=== PATIENT | female | born 1960 | race Caucasian/White ===

== ENCOUNTER 2016-07-04 17:50 | Emergency (ER) | payer MEDICARE ==
[2016-07-04] MEDS ORDERED: Aspirin Low Dose CHEW TAB* 81 MG ONE (18:11)
[2016-07-04] MEDS ORDERED: fentaNYL* 50 MCG/ML 2 ML VIAL (100 MCG VIAL) ONE (18:40)
[2016-07-04] MEDS ORDERED: Iohexol 350 (CONTRAST) 200 ML MDV IV ONE (18:41)
[2016-07-04] MEDS ORDERED: Lidocaine 1% INJ* 10 MG/ML 30 ML SDV ONE (18:41)
[2016-07-04] MEDS ORDERED: Heparin 2 UNITS/ML IVPREMIX* 0 ML IV ONE (18:41)
[2016-07-04] MEDS ORDERED: Midazolam* 1 MG/ML 5 ML VIAL (5 MG) ONE (18:41)
[2016-07-04] MEDS ORDERED: nitroGLYCERIN DRIP* 0 ML ONE (18:41)
[2016-07-04] MEDS ORDERED: Aspirin Low Dose CHEW TAB* 81 MG PO ONE (22:35)
--- NOTE | 2016-07-04 22:36 | UC ---
Kenyon Mcneil Aidan, scribed for Nisha Miller MD on 07/04/16 at 1850 . Shortness of Breath HPI - HPI Summary HPI Summary: 55 y/o female presents to the Urgent Care, accompanied by boyfriend, c/o cough, weakness, sob over the last couple days. Worse for the last several hours. Weakness is profound. ROS and HPI as available per boyfriend, pt very weak. Yesterday, she vomited. This afternoon, she became diaphoretic and weaker. While in the UC, she was able to move her fingers and toes. Pt denies hepatitis , HIV or Hx of AZ. + hx DM, diet controlled. No current PCP (?). Does not take medications except "aspirin now and then," but not today. - History of Current Complaint Chief Complaint: UCAlteredMentalStatus Stated Complaint: DIFFICULTY BREATHING,STOMACH PAIN,CHILLS Hx Obtained From: Patient ?: No Onset/Duration: Sudden Onset, Lasting Days, Still Present Timing: Constant - SOB Current Severity: Moderate Dyspnea At: Rest Aggrevating Factors: Nothing - unknown Alleviating Factors: Nothing - unknown Associated Signs & Symptoms: Positive: Cough (Productive), Diaphoresis, Other - vomiting, weakness, episode of difficulty walking, - Risk Factors Pulmonary Embolism: Smoking Cardiac: Smoking Tuberculosis: Smoking - Allergy/Home Medications Allergies/Adverse Reactions: Allergies Allergy/AdvReac Type Severity Reaction Status Date / Time No Known Allergies Allergy Verified 07/04/16 18:09 Home Medications: Home Medications NK [No Home Medications Reported] 07/04/16 [History Confirmed 07/04/16] PMH/Surg Hx/FS Hx/Imm Hx Previously Healthy: No - se hpi Endocrine History Of: Reports: Diabetes - Surgical History Surgical History: Unable to Obtain/Confirm - Family History Known Family History: Positive: Cardiac Disease - Social History Occupation: Employed Full-time Lives: Alone Alcohol Use: Rare Substance Use Type: None Smoking Status (MU): Heavy Every Day Tobacco Smoker Review of Systems Constitutional: Fever, Other - weakness, episode of difficulty walking ROS limited see hpi. Full ROS not obtainable 2/2 extremis. Skin: Negative Eyes: Negative ENT: Negative Respiratory: Shortness Of Breath, Cough Cardiovascular: Negative Gastrointestinal: Vomiting Genitourinary: Negative Motor: Negative Neurovascular: Negative Musculoskeletal: Negative Neurological: Negative Psychological: Negative All Other Systems Reviewed And Are Negative: No Physical Exam Triage Information Reviewed: Yes Completion Of Physical Exam Limited Due To: Altered Mental Status, Extremis Appearance: Well-Nourished, Ill-Appearing Vital Signs: Initial Vital Signs Temp 95.4 F 07/04/16 18:06 Resp 18 07/04/16 18:06 Pulse Ox 89 07/04/16 18:06 Vital Signs Reviewed: Yes Eye Exam: Normal - pupils equal, approx 3 mm. Appears to track all directions. ENT Exam: Other - mm dry. trachea midline. No stridor. Neck: Positive: Supple, Nontender Respiratory Exam: Other Respiratory: Positive: Rhonchi, Wheezing, Expiration Cardiovascular Exam: Other - Pulse (Radial) thready and faint. HR approx 130' s. BP number difficult approx 80s syst. Abdominal Exam: Other - nondistended to gross exam. Obese. Abdomen Description: Positive: Soft Musculoskeletal Exam: Other - moves all 4 ext's (wiggles toes, moves fingers). Gait not tested. Neurological Exam: Other - Facial exp grossly intact. Moves all 4 ext's Converses in very short sentances, appropriate. Psychological: Positive: Normal Response To Family, Age Appropriate Behavior Skin Exam: Other - diaphoretic, pale. Diagnostics - EKG Cardiac Rate: Tachycardia - 139 Cardiac Rhythm: Sinus: Normal - EKG 1806: sinus rhythm, ST elevation and VII , no prior EKG to reference. Shortness of Breath Dx - Course Course Of Treatment: ASA 82mg po x 4 in CCC. EMS notified immediately at time of my initial examination. D/w Dr. Mueller, ED. Gentleman friend will drive to ED and meet her there. Expresses understanding and agreement. Condition is critical. - Differential Dx/Diagnosis Provider Diagnoses: AZ. Cough. Volume depl - Physician Notification/Consults Discussed Patient Care With: Dr. Cabrera (ED) Time Discussed With Above Provider: 18:20 - Dr. Miller discussed transfer. She spoke with Dr. Cabrera a second time at 1930 for followup Discharge - Discharge Plan Condition: Critical Disposition: TRANS HIGHER LVL OF CARE FAC Referrals: No Primary Care Phys,NOPCP [Primary Care Provider] - The documentation as recorded by the Kenyon shetty Aidan accurately reflects the service I personally performed and the decisions made by me, Nisha Miller MD.
[2016-07-04] MEDS ORDERED: NS 0.9% 500 ML BAG* 500 ML IV SCH (23:00)
[2016-07-04 23:22] VITALS: BP 66/57
== END 2016-07-04 18:25 | disposition short-term general hospital (02) ==
LOC: UCEAST 17:50
DX: I21.3 ST elevation (STEMI) myocardial infarction of unspecified site (principal); R05 Cough; R41.82 Altered mental status, unspecified; E86.9 Volume depletion, unspecified; E11.9 Type 2 diabetes mellitus without complications; F17.210 Nicotine dependence, cigarettes, uncomplicated
CPT/HCPCS: 93005; 99204; A9270-GY; G0463; J1644; J2001; J2250; J3010

== ENCOUNTER 2016-07-04 18:33 | Emergency (ER) | payer MEDICARE ==
[2016-07-04] MEDS ORDERED: NS 0.9% 1000 ML* 3,000 ML IV ONE (18:40)
[2016-07-04] MEDS ORDERED: Heparin for STEMI(*) 5,000 UNITS/ML 1 ML VIAL IV ONE (18:40)
[2016-07-04 18:47] LABS: Hematocrit 43 % (35-47); Hemoglobin 14.4 g/dl (12.0-16.0); Mean Corpuscular HGB Conc 33 g/dl (31-36); Mean Corpuscular Hemoglobin 30 pg (27-31); Mean Corpuscular Volume 89 fL (80-97); Mean Platelet Volume 9 um3 (7.4-10.4); Red Blood Count 4.87 10^6/ul (4.0-5.4); Red Cell Distribution Width 15 % (10.5-15); White Blood Count 19.1 10^3/ul (3.5-10.8)
[2016-07-04 18:51] LABS: Comments Flag Yes
[2016-07-04 18:56] LABS: Add Diff/Slide Review? Slide Review Added
[2016-07-04 19:03] LABS: Albumin 2.7 g/dL (3.2-5.2); BUN/Creatinine Ratio 13.5 (8-20); Calcium 8.4 mg/dL (8.6-10.3); EGFR African American 24.5 (>60); EGFR Non-African American 19.1 (>60); Globulin 4.9 g/dL (2-4); Potassium 3.3 mmol/L (3.5-5.0); Total Bilirubin 0.9 mg/dL (0.2-1.0); Total Protein 7.6 g/dL (6.4-8.9)
[2016-07-04] MEDS ORDERED: Piperac/Tazob 3.375 gm in NS* 3.375 GM/100 ML BAG IVPB ONE ×2 (19:04→19:10)
[2016-07-04] MEDS ORDERED: Vancomycin(*) 1,000 MG in NS 0.9% 250 ML* 250 ML IVPB ONE (19:05)
[2016-07-04 19:08] LABS: Troponin I 8.1 ng/mL (<0.04)
[2016-07-04] MEDS ORDERED: Norepinephrine 16MCG/ML IVPRE* 8,000 MCG/500 ML BAG IV ONE (19:08)
[2016-07-04 19:23] LABS: Burr Cells 1+; Immature Granulocytes 38 % (0-9); Metamyelocytes % 5 % (0-2); Myelocytes % 6 % (0-1); Neutrophil % 53 % (38-83); Polychromasia 1+
[2016-07-04 19:25] LABS: Add Path Review? YES
[2016-07-04] MEDS ORDERED: Iodixanol* (CONTRAST) 320 MG/ML 100 ML SDV ONE (19:25)
[2016-07-04] MEDS ORDERED: Phenylephrine IV* 40 MCG/ML 10 ML SYRINGE IV PUSH PRN (19:32)
--- NOTE | 2016-07-04 19:35 | RAD ---
Indication: Shortness of breath, cough, CHF, pneumonia. Single frontal view of the chest performed at 1849 hours was reviewed. No prior study is available for comparison.. No mediastinal shift is noted. Heart is of normal size and configuration. Lung arriola appear clear. IMPRESSION: NO ACTIVE CARDIOPULMONARY DISEASE IS NOTED.
[2016-07-04] MEDS: [UNRECOGNIZED DRUG - OTHER] IV SCH ×4 (19:50→20:06)
[2016-07-04] MEDS: PHENYLEPHRINE IV SCH ×4 (19:50→20:06)
[2016-07-04] MEDS ORDERED: Norepinephrine 16MCG/ML IVPRE* 4,000 MCG/250 ML BAG IV SCH (20:00)
--- NOTE | 2016-07-04 20:09 | RAD ---
Indication: Abdominal pain, chest pain. CT of the chest, abdomen and pelvis was performed without oral or IV contrast administration. Coronal and sagittal reconstructed images were obtained. Inferior thyroid lobes are unremarkable. There are small mediastinal lymph nodes measuring up to 8 mm. No hilar adenopathy is noted. The heart demonstrates no pericardial effusion. The trachea and major bronchi appear patent. The lung arriola demonstrate no evidence of alveolar consolidation. No pleural fluid is identified. CT of the abdomen and pelvis demonstrates liver to be normal in size. No focal lesions or intrahepatic ductal dilatation is noted. The gallbladder demonstrates no calcified gallstones. No pericholecystic fluid or wall thickening is identified. The spleen is normal in size. The pancreas demonstrates no mass or pancreatic duct dilatation. Common duct is not dilated. There is enlargement of the right kidney. There is right hydroureter noted. There are 2 small calculi in the right ureter measuring approximately 4 mm each. This is likely causing right ureteral obstruction. Perinephric infiltration of fat is noted. The left kidney demonstrates no hydronephrosis. Atherosclerotic aorta is noted. The urinary bladder is unremarkable. IMPRESSION: THERE IS RIGHT HYDRONEPHROSIS AND HYDROURETER NOTED. THERE ARE SMALL CALCULI IN THE DISTAL RIGHT URETER LIKELY REPRESENTING URETERAL OBSTRUCTION. PERINEPHRIC INFILTRATION OF FAT IS NOTED. THERE APPEARS TO BE CHRONIC INTERSTITIAL DISEASE NOTED.
[2016-07-04 20:23] LABS: Fibrinogen 429 mg/dL (110.8-404.3)
[2016-07-04 20:24] LABS: Schistocytes ABSENT
--- NOTE | 2016-07-04 21:32 | ED ---
Isabela Mcneil Auryana, scribed for Kris Mueller MD on 07/04/16 at 1923 . HPI Febrile Illness - HPI Summary HPI Summary: 55 year old female LUIZ with fever and chills starting 2-3 days ago. She also has a CHEN, productive cough, abdominal pain and vomiting. En route - BP 52/39, HR 140- on arrival HR 114. She denies SOB, or CP. PMHx is significant for DM. SHx is significant for tobacco use. She was seen at [facility] for cough and weakness and brought by ambulance for further evaluation due to condition. - History of Current Complaint Chief Complaint: EDChestPainROMI Time Seen by Provider: 07/04/16 18:40 Hx Obtained From: Patient, EMS Onset/Duration: Started Days Ago - 2-3, Still Present Timing: Constant Initial Severity: Mild Current Severity: Mild Pain Intensity: 0 Pain Scale Used: 0-10 Numeric Associated Signs and Symptoms: Chills, Cough, Headache, Vomiting, Weakness, Other: - abdominal pain - Additional Pertinent History Referred By: Other - [facility] - Allergy/Home Medications Allergies/Adverse Reactions: Allergies Allergy/AdvReac Type Severity Reaction Status Date / Time No Known Allergies Allergy Verified 07/04/16 18:09 PMH/Surg Hx/FS Hx/Imm Hx Endocrine/Hematology History: Reports: Hx Diabetes Infectious Disease History: No Infectious Disease History: Denies: Traveled Outside the [place] in Last 30 Days - Social History Occupation: Employed Full-time Lives: With Family - domestic partner Alcohol Use: Rare Substance Use Type: Reports: None Smoking Status (MU): Heavy Every Day Tobacco Smoker Review of Systems Constitutional: Negative Eyes: Negative ENT: Negative Cardiovascular: Negative Negative: Chest Pain Respiratory: Negative Negative: Shortness Of Breath Gastrointestinal: Negative Genitourinary: Negative Musculoskeletal: Negative Skin: Negative Neurological: Negative Psychological: Normal All Other Systems Reviewed And Are Negative: Yes Physical Exam - Summary Physical Exam Summary: The patient is well-nourished in moderate distress and is moderately ill appearing. She is modeled. The skin is warm and diaphoretic. Patient is pale. HEENT: The head is normocephalic and atraumatic. The pupils are equal and reactive. The conjunctivae are clear and without drainage. Nares are patent and without drainage. Mouth reveals dry mucous membranes and the throat is without erythema and exudate. The external ears are intact. The ear canals are patent and without drainage. The tympanic membranes are intact. No perioral cyanosis. Neck is supple with full range of motion and non-tender. There are no carotid bruits. There is no neck vein distension. Respiratory: Chest is non-tender. Lungs have rhonchi on the R - no rales. Breath sounds are symmetrical and equal. Cardiovascular: Heart is tachycardic. There is no murmur or rub auscultated. There is no peripheral edema and pulses are symmetrical and equal. Abdomen: The abdomen is soft and non-tender. There are normal bowel sounds heard in all four quadrants and there is no organomegaly palpated. Musculoskeletal: There is no back pain noted. Extremities are non-tender. Couldn't see capillary refill through nail upper sorbian. Radial pulses present. Neurological: Patient is alert and oriented to person, place and time. The patient has symmetrical motor strength in all four extremities. Cranial nerves are grossly intact. Deep tendon reflexes are symmetrical and equal in all four extremities. Psychiatric: The patient has an appropriate affect and does not exhibit any anxiety or depression. Triage Information Reviewed: Yes Vital Signs On Initial Exam: Initial Vitals Temp Pulse Resp BP Pulse Ox 96.7 F 102 38 92/37 99 07/04/16 18:37 07/04/16 18:37 07/04/16 18:37 07/04/16 18:37 07/04/16 18:37 Vital Signs Reviewed: Yes Diagnostics - Vital Signs Vital Signs Temp Pulse Resp BP Pulse Ox 07/04/16 18:40 31 92/37 07/04/16 18:37 96.7 F 102 38 92/37 99 - Laboratory Lab Results: Lab Results 07/04/16 07/04/16 07/04/16 Range/Units 18:35 18:35 18:35 WBC 19.1 H (3.5-10.8) 10^3/ul RBC 4.87 (4.0-5.4) 10^6/ul Hgb 14.4 (12.0-16.0) g/dl Hct 43 (35-47) % MCV 89 (80-97) fL MCH 30 (27-31) pg MCHC 33 (31-36) g/dl RDW 15 (10.5-15) % Plt Count 47 L 47 L (150-450) 10^3/ul MPV 9 (7.4-10.4) um3 Immature Gran % (Auto) 38 H (0-9) % Neut % (Auto) 87.1 H (38-83) % Lymph % (Auto) 8.9 L (25-47) % Wright % (Auto) 3.8 (1-9) % Eos % (Auto) 0.1 (0-6) % Baso % (Auto) 0.1 (0-2) % Absolute Neuts (auto) 16.5 H (1.5-7.7) 10^3/ul Absolute Lymphs (auto) 1.7 (1.0-4.8) 10^3/ul Absolute Monos (auto) 0.7 (0-0.8) 10^3/ul Absolute Eos (auto) 0 (0-0.6) 10^3/ul Absolute Basos (auto) 0 (0-0.2) 10^3/ul Absolute Nucleated RBC 0.01 10^3/ul Neutrophils % 53 (38-83) % Band Neutrophils % 27 H (0-8) % Lymphocytes % 9 L (25-47) % Metamyelocytes % 5 H (0-2) % Myelocytes % 6 H (0-1) % Nucleated RBC % 0 Normal RBC Morphology Not Reportable Polychromasia 1+ Chelsea Cells 1+ Schistocytes Absent Hem Pathologist Commnt Pending INR (Anticoag Therapy) 1.63 H (0.89-1.11) APTT 37.8 H (26.0-36.3) seconds Fibrinogen 429 H (110.8-404.3) mg/dL D-Dimer, Quantitative > 1050 H (Less Than 230) ng/mL Coag Pathologist Com Pending Sodium 138 (133-145) mmol/L Potassium 3.3 L (3.5-5.0) mmol/L Chloride 105 (101-111) mmol/L Carbon Dioxide 17 L (22-32) mmol/L Anion Gap 16 H (2-11) mmol/L BUN 35 H (6-24) mg/dL Creatinine 2.59 H (0.51-0.95) mg/dL Est GFR ( Amer) 24.5 (>60) Est GFR (Non-Af Amer) 19.1 (>60) BUN/Creatinine Ratio 13.5 (8-20) Glucose 97 (70-100) mg/dL Lactic Acid (0.5-2.0) mmol/L Calcium 8.4 L (8.6-10.3) mg/dL Total Bilirubin 0.90 (0.2-1.0) mg/dL AST 47 H (13-39) U/L ALT 25 (7-52) U/L Alkaline Phosphatase 186 H (34-104) U/L Total Creatine Kinase 97 (10-223) U/L CK-MB (CK-2) 10.4 H (0.6-6.3) ng/mL Myoglobin 191.9 H (14.3-65.8) ng/mL Troponin I 8.10 H* (<0.04) ng/mL B-Natriuretic Peptide ( - 100) pg/mL Total Protein 7.6 (6.4-8.9) g/dL Albumin 2.7 L (3.2-5.2) g/dL Globulin 4.9 H (2-4) g/dL Albumin/Globulin Ratio 0.6 L (1-3) LDL Cholesterol Direct 12 mg/dL Blood Type Antibody Screen 07/04/16 07/04/16 07/04/16 Range/Units 18:35 18:35 18:35 WBC (3.5-10.8) 10^3/ul RBC (4.0-5.4) 10^6/ul Hgb (12.0-16.0) g/dl Hct (35-47) % MCV (80-97) fL MCH (27-31) pg MCHC (31-36) g/dl RDW (10.5-15) % Plt Count (150-450) 10^3/ul MPV (7.4-10.4) um3 Immature Gran % (Auto) (0-9) % Neut % (Auto) (38-83) % Lymph % (Auto) (25-47) % Wright % (Auto) (1-9) % Eos % (Auto) (0-6) % Baso % (Auto) (0-2) % Absolute Neuts (auto) (1.5-7.7) 10^3/ul Absolute Lymphs (auto) (1.0-4.8) 10^3/ul Absolute Monos (auto) (0-0.8) 10^3/ul Absolute Eos (auto) (0-0.6) 10^3/ul Absolute Basos (auto) (0-0.2) 10^3/ul Absolute Nucleated RBC 10^3/ul Neutrophils % (38-83) % Band Neutrophils % (0-8) % Lymphocytes % (25-47) % Metamyelocytes % (0-2) % Myelocytes % (0-1) % Nucleated RBC % Normal RBC Morphology Polychromasia Spike Cells Schistocytes Hem Pathologist Commnt INR (Anticoag Therapy) (0.89-1.11) APTT (26.0-36.3) seconds Fibrinogen (110.8-404.3) mg/dL D-Dimer, Quantitative (Less Than 230) ng/mL Coag Pathologist Com Sodium (133-145) mmol/L Potassium (3.5-5.0) mmol/L Chloride (101-111) mmol/L Carbon Dioxide (22-32) mmol/L Anion Gap (2-11) mmol/L BUN (6-24) mg/dL Creatinine (0.51-0.95) mg/dL Est GFR ( Amer) (>60) Est GFR (Non-Af Amer) (>60) BUN/Creatinine Ratio (8-20) Glucose (70-100) mg/dL Lactic Acid 9.1 H* (0.5-2.0) mmol/L Calcium (8.6-10.3) mg/dL Total Bilirubin (0.2-1.0) mg/dL AST (13-39) U/L ALT (7-52) U/L Alkaline Phosphatase (34-104) U/L Total Creatine Kinase (10-223) U/L CK-MB (CK-2) (0.6-6.3) ng/mL Myoglobin (14.3-65.8) ng/mL Troponin I (<0.04) ng/mL B-Natriuretic Peptide 933 H ( - 100) pg/mL Total Protein (6.4-8.9) g/dL Albumin (3.2-5.2) g/dL Globulin (2-4) g/dL Albumin/Globulin Ratio (1-3) LDL Cholesterol Direct mg/dL Blood Type B Positive Antibody Screen Negative Result Diagrams: 07/04/16 18:35 07/04/16 18:35 Lab Statement: Any lab studies that have been ordered have been reviewed, and results considered in the medical decision making process. - Radiology CXR Xray Interpretation: No Acute Changes - NO PNA SEEN. Radiology Interpretation Completed By: ED Physician - CT ABD/PEL/CHEST CT Interpretation: Positive (See Comments) - IMPRESSION: THERE IS RIGHT HYDRONEPHROSIS AND HYDROURETER NOTED. THERE ARE SMALL CALCULI IN THE DISTAL RIGHT URETER LIKELY REPRESENTING URETERAL OBSTRUCTION. PERINEPHRIC INFILTRATION OF FAT IS NOTED. THERE APPEARS TO BE CHRONIC INTERSTITIAL DISEASE NOTED. CT Interpretation Completed By: Radiologist - EKG 18:31 ST Segment: Non-Specific - ST changes EKG Interpretation: ST elevation in V1&V2, ? ST elevation in lead II, III, & aVf Course/Dx - Course Assessment/Plan: 55 year old female BIBA with fever and chills starting 2-3 days ago. She also has a CHEN, productive cough, abdominal pain and vomiting. En route - BP 52/39, HR 140- on arrival HR 114. She denies SOB, or CP. PMHx is significant for DM. SHx is significant for tobacco use. She was seen at [facility] for cough and weakness and brought by ambulance for further evaluation due to condition. 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 Trimble present. DDx: septic or cardiogenic shock, global hypokinesis. Likely admit to ICU - Hospitalist notified. EKG: ST elevation in V1&V2, ? ST elevation in lead II, III, & aVf; non-specific ST segment changes. LABS: elevated WBC, INR, PTT, >1050 D-Dimer, BNP 933, Troponin 8.10, lactic 9.1, elevated CK-MB, myoglobin, AST, alkaline phosphatase - see medical records for more lab results. CXR: no PNA seen - Read by Dr. Mueller, by radiologist - NAD. CT ABD/PEL /CHEST:IMPRESSION-THERE IS RIGHT HYDRONEPHROSIS AND HYDROURETER NOTED. THERE ARE SMALL CALCULI IN THE DISTAL RIGHT URETER LIKELY REPRESENTING URETERAL OBSTRUCTION. PERINEPHRIC INFILTRATION OF FAT IS NOTED. THERE APPEARS TO BE CHRONIC INTERSTITIAL DISEASE NOTED. Consult with hospitalist - Agrees to admission however patient needs urology and it is not available at [facility]. Patient will be transfered to [facility] - Dr. Tiago Richards is the accepting physician. Patient is in severe septic shock and must be flown. She is on 2 pressors to maintain blood pressure. she was admimnistered Zosyn and Vancomycin. she did not respond to fluid boluses x 3.Time is of the essence, and the fasted route is by air. It is a medically necessity and she must be transferred by air to [facility]. 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 - Critical Care Time Critical Care Time: 30-74 min - 60 minutes critical care time Discharge - Discharge Plan Condition: Critical Disposition: TRANS HIGHER LVL OF CARE FAC Discharge Disposition Comment: transfer to [facility] ED- NO UROLOGY AVAILABLE HERE Referrals: No Primary Care Phys,NOPCP [Primary Care Provider] - The documentation as recorded by the Isabela shetty Auryana accurately reflects the service I personally performed and the decisions made by , Kris Mueller MD.
[2016-07-04 21:41] LABS: Urine Bacteria 3+ (Absent); Urine Bilirubin Negative (Negative); Urine Glucose Negative (Negative); Urine Nitrite Negative (Negative)
--- NOTE | 2016-07-04 21:44 | PN ---
Progress Note - Progress Note Note: Central Line Procedure Note Indication: Hypotension/shock, poor vascular access Emergently placed with verbal bedside consent from patient. - Prior labs/history was reviewed prior to procedure - Full sterile precautions with chlorhexidine/full drapes/gowns/gloves utilized - Right Internal Jugular vein visualized with ultrasound - Vessel accessed under ultrasound guidance with return of nonpulsatile blood. A guidewire was passed into vessel and confirmed in vessel with ultrasound. 1 attempt was made to access vessel. Vessel was dilated and cathetor was passed over wire into vessel. All ports demonstrated good blood return and flushed. Catheter was sutured to site and dressing applied Adequate hemostasis was achieved, EBL 3 cc No immediate complications noted, patient tolerated procedure well. CXR - confirmed RIJ central line placement; no ptx. Okay to use line Monroe Lawson MD Engineering Project Manager (electronically signed)
--- NOTE | 2016-07-04 21:46 | CONSULT ---
Consult Consult: Consultation - Critical Care Requesting Physician: Dr Mueller (ER MD) Limitations in history/physical: none Date of consult: 07/04/2016 HPI: 55y F w/pmhx DM; Brought in by ambulance for abdominal pain for days, associated with chills, rigors, nausea/vomitting; no cp/sob/dizziness/syncope. no sick contacts. diarrhea+. no dyuria/freq. no swelling in LE. EMS was called for severe pain; BP initially in 50s systolic, HR 140s; in ER given IVF bolus, started on pressors with levophed for hypotension, currently at 45mcg/min, then neosynephrine iv. Initially a STEMI was called because she came from an urgent care where they though there was a STEMI on EKG. Here, interventional cardiology had seen the patient and after we reviewed the ekgs we deemed EKG and repeat EKG without occult ST changes consistent with WI. A bedside echo was done which showed them intact RV but a dilated and hypokinetic LV. currently she has a sbp 120s/50s, HR 90s; sat 100% on aerosol mask. CT abd/pelvis was done - demonstrated right sided ureteral obstruction with small stones 4mm, right hydronephrosis with perinephric stranding. ROS: negative except for pertinent positives mentioned above. PMHx: DM PSHx: none Family History: DM, HTN Social History: smoking+; no drug use. Allergies: Allergies Allergy/AdvReac Type Severity Reaction Status Date / Time No Known Allergies Allergy Verified 07/04/16 18:09 Home Medications: NK [No Home Medications Reported] 07/04/16 [History Confirmed 07/04/16] Tele: NSR Vitals: Vital Signs Temp 98.4 F 07/04/16 21:25 Pulse 103 07/04/16 21:25 Resp 31 07/04/16 21:25 BP 121/48 07/04/16 21:25 Pulse Ox 100 07/04/16 21:25 Intake & Output 07/04/16 07/04/16 07/05/16 06:59 18:59 06:59 Weight 158 lb O2/Vent: aersol mask, sat 100%, rr 18 Infusions: levophed 45mcg/min and neosynephrine iv 30mcg/min Current Medications: Norepinephrine Bitartrate (Levophed 16 Mcg/Ml Premix Bag*) 4,000 mcg in 250 mls @ 45 mls/hr IV .INITIAL RATE WILLIAM PRN Reason: 12 MCG/MIN Last Admin: 07/04/16 19:11 Dose: 45 mls/hr Phenylephrine HCl 50 mg/ (Sodium Chloride) 250 mls @ 0 mls/hr IV Q24H WILLIAM; As Directed PRN Reason: Protocol Last Admin: 07/04/16 20:06 Dose: 13.5 mls/hr Phenylephrine HCl (Neosynephrine Iv*) 40 mcg IV PUSH Q5M PRN PRN Reason: hypotension Physical Exam: General: awake, alert, oriented, no distress Head: normocephalic, atraumatic HEENT: no pallor, no icterus, moist mucous membranes Neck: soft, supple, no jvd, no stridor CVS: normal rate, normal rhythm, no murmur Resp: bilateral air entry, no rhales, no wheeze, no rhonchi, no acc muscle use Abdomen: soft, tender more right upper and lower quandrants, nondistended, bowel sounds+ Ext: pulses+, warm, no edema Skin: intact, no breakdown, no dryness Neuro: awake, alert, oriented Labs: Laboratory Results - last 24 hr 07/04/16 07/04/16 07/04/16 18:35 18:35 18:35 WBC 19.1 H RBC 4.87 Hgb 14.4 Hct 43 MCV 89 MCH 30 MCHC 33 RDW 15 Plt Count 47 L 47 L MPV 9 Immature Gran % (Auto) 38 H Neut % (Auto) 87.1 H Lymph % (Auto) 8.9 L Nicholas % (Auto) 3.8 Eos % (Auto) 0.1 Baso % (Auto) 0.1 Absolute Neuts (auto) 16.5 H Absolute Lymphs (auto) 1.7 Absolute Monos (auto) 0.7 Absolute Eos (auto) 0 Absolute Basos (auto) 0 Absolute Nucleated RBC 0.01 Neutrophils % 53 Band Neutrophils % 27 H Lymphocytes % 9 L Metamyelocytes % 5 H Myelocytes % 6 H Nucleated RBC % 0 Normal RBC Morphology Not Reportable Polychromasia 1+ [place] Cells 1+ Schistocytes Absent INR (Anticoag Therapy) 1.63 H APTT 37.8 H Fibrinogen 429 H D-Dimer, Quantitative > 1050 H Sodium 138 Potassium 3.3 L Chloride 105 Carbon Dioxide 17 L Anion Gap 16 H BUN 35 H Creatinine 2.59 H Est GFR ( Amer) 24.5 Est GFR (Non-Af Amer) 19.1 BUN/Creatinine Ratio 13.5 Glucose 97 Lactic Acid Calcium 8.4 L Total Bilirubin 0.90 AST 47 H ALT 25 Alkaline Phosphatase 186 H Total Creatine Kinase 97 CK-MB (CK-2) 10.4 H Myoglobin 191.9 H Troponin I 8.10 H* B-Natriuretic Peptide Total Protein 7.6 Albumin 2.7 L Globulin 4.9 H Albumin/Globulin Ratio 0.6 L LDL Cholesterol Direct 12 Urine Color Urine Appearance Urine pH Ur Specific Peetz Urine Protein Urine Ketones Urine Blood Urine Nitrate Urine Bilirubin Urine Urobilinogen Ur Leukocyte Esterase Urine WBC (Auto) Urine RBC (Auto) Amorphous Crystals Urine Bacteria Hyaline Casts Urine Glucose Blood Type Antibody Screen 07/04/16 07/04/16 07/04/16 18:35 18:35 18:35 WBC RBC Hgb Hct MCV MCH MCHC RDW Plt Count MPV Immature Gran % (Auto) Neut % (Auto) Lymph % (Auto) Nicholas % (Auto) Eos % (Auto) Baso % (Auto) Absolute Neuts (auto) Absolute Lymphs (auto) Absolute Monos (auto) Absolute Eos (auto) Absolute Basos (auto) Absolute Nucleated RBC Neutrophils % Band Neutrophils % Lymphocytes % Metamyelocytes % Myelocytes % Nucleated RBC % Normal RBC Morphology Polychromasia Spike Cells Schistocytes INR (Anticoag Therapy) APTT Fibrinogen D-Dimer, Quantitative Sodium Potassium Chloride Carbon Dioxide Anion Gap BUN Creatinine Est GFR ( Amer) Est GFR (Non-Af Amer) BUN/Creatinine Ratio Glucose Lactic Acid 9.1 H* Calcium Total Bilirubin AST ALT Alkaline Phosphatase Total Creatine Kinase CK-MB (CK-2) Myoglobin Troponin I B-Natriuretic Peptide 933 H Total Protein Albumin Globulin Albumin/Globulin Ratio LDL Cholesterol Direct Urine Color Urine Appearance Urine pH Ur Specific Peetz Urine Protein Urine Ketones Urine Blood Urine Nitrate Urine Bilirubin Urine Urobilinogen Ur Leukocyte Esterase Urine WBC (Auto) Urine RBC (Auto) Amorphous Crystals Urine Bacteria Hyaline Casts Urine Glucose Blood Type B Positive Antibody Screen Negative 07/04/16 21:25 WBC RBC Hgb Hct MCV MCH MCHC RDW Plt Count MPV Immature Gran % (Auto) Neut % (Auto) Lymph % (Auto) Nicholas % (Auto) Eos % (Auto) Baso % (Auto) Absolute Neuts (auto) Absolute Lymphs (auto) Absolute Monos (auto) Absolute Eos (auto) Absolute Basos (auto) Absolute Nucleated RBC Neutrophils % Band Neutrophils % Lymphocytes % Metamyelocytes % Myelocytes % Nucleated RBC % Normal RBC Morphology Polychromasia Spike Cells Schistocytes INR (Anticoag Therapy) APTT Fibrinogen D-Dimer, Quantitative Sodium Potassium Chloride Carbon Dioxide Anion Gap BUN Creatinine Est GFR ( Amer) Est GFR (Non-Af Amer) BUN/Creatinine Ratio Glucose Lactic Acid Calcium Total Bilirubin AST ALT Alkaline Phosphatase Total Creatine Kinase CK-MB (CK-2) Myoglobin Troponin I B-Natriuretic Peptide Total Protein Albumin Globulin Albumin/Globulin Ratio LDL Cholesterol Direct Urine Color Laura Urine Appearance Cloudy Urine pH 5.0 Ur Specific Peetz 1.019 Urine Protein 1+(30 mg/dl) H Urine Ketones Negative Urine Blood 1+ H Urine Nitrate Negative Urine Bilirubin Negative Urine Urobilinogen Negative Ur Leukocyte Esterase 1+ H Urine WBC (Auto) 2+(11-20/hpf) H Urine RBC (Auto) 3+(>10/hpf) H Amorphous Crystals Present H Urine Bacteria 3+ H Hyaline Casts Present H Urine Glucose Negative Blood Type Antibody Screen Imaging: CT abd/pelvis 07/04 - reviewed - right ureteral stones with obstruction, right hydronephrosis with perinephric stranding+ Assessment: 55y F with DM who presents with right sided abd pain, n/v, diarrhea+ , chills; found to have pyelonephritis with hydronephrosis and ureteral obstruction on the right associated with septic shock Right ureteral obstruction Right hydronephrosis Right pyelonephritis Septic SHock Coagulopathy JOSHUA 2/2 to obstructive uropathy +/- septic ATN +/- pyelonephritis +/- pre-renal azotemia/hypotension thrombocytopenia Lactic acidosis NSTEMI type 2 PLAN IVF infusion; LEvophed and chula, would prefer vasopressin. Keep MAP>65 IV abx with zosyn and vanco; sepsis protocol initiated No resp distress She would need source control with likely perc nephrostomy drain as cystoscopy would not be safe in her septic state. IR is not available at [facility] over the weekend and if condition deteriorates she would need urgent decompression of obstruction. Discussed with oncall radiology and no availability over the weekend for procedure. Discussed with ER, best option would be to transfer to higher level with oncall IR for need for per drainage of right hydro in coming 24-48 hours. They agree. NO acute STEMI, discussed with cardiology; likely demand ischemia +/- septic myocardial dysfunction. will support underlying sepsis. May need re-eval of cardiac function once sepsis improved; follow mixed venous gases and perfusion status to determine if underlying acute cardiac dysfunction is also occurring. No overt bleeding noted. NPO now. [place] in place Central line was placed for venous access in septic state. CXR confirmed placement. Patient to be transferred to higher level facility for likely IR intervention in setting obstructive uropathy/pyelonephritis with septic shock. Disposition: Transfer to higher level of care Code Status: FULL CODE Total Critical Care time is 60 minutes, excluding procedures/teaching Monroe Lawson MD Plant Controls Specialist (Electronically Signed)
[2016-07-04 22:40] VITALS: BP 118/70
--- NOTE | 2016-07-04 22:41 | RAD ---
Indication: Central line placement, pneumothorax. Single frontal view of the chest performed at 2124 hours was reviewed. Comparison is made with previous exam dated July 04, 2016. No mediastinal shift is noted. Heart is of normal size and configuration. Lung arriola appear clear. Right-sided internal jugular vein catheter is in place. Tip is in the superior vena cava. No pneumothorax is noted. IMPRESSION: NO ACTIVE CARDIOPULMONARY DISEASE IS NOTED. INTERNAL JUGULAR VEIN CATHETER IN PLACE WITH NO PNEUMOTHORAX.
--- NOTE | 2016-07-04 23:52 | CONS ---
CARDIOLOGY CONSULTATION: DATE OF CONSULT: 07/04/16 REASON FOR CONSULT: Called by Dr. Kris Mueller for a reported STEMI patient being brought over [facility]. HISTORY OF PRESENT ILLNESS: The patient is a 55-year-old female who after getting as much history a s possible through her and her boyfriend started getting sick some 2 days ago. She had a lower quad rant abdominal discomfort on the right side. She had this for some 2 days. She had nausea and vomi ting with this. She refused to go to the emergency room when her boyfriend wanted to take her. Fin ally, she became lethargic and severely ill enough that she was willing to go to [facility]. A t [facility], despite the fact that she was having no chest discomfort, no shortness of breath, no throat, jaw or arm discomfort, an EKG was obtained that revealed a moving baseline with a questi on of ST segment elevation in V2. They were also questioning whether or not there were ST segment d epressions in 2, 3 and aVF, but with the tachycardia, there was J-point depression, but upsloping ST segments that were clearly back to baseline by 8 milliseconds after the J point. In the emergency r oom, a repeat EKG was obtained with a slower heart rate after a significant amount of fluids were in and there was no profound ST segment elevation noted. There was perhaps minimal still noted in V2 at best. There were not any [address] segment elevation. Of note, the patient continued to deny any specific chest or jaw or arm discomfort or shortness of breath. She received an extensive fluid bolus and laboratory results revealed a white count of 19,100 with 38% immature g ranulocytes with a platelet count of 47,000. Her INR was 1.6 and as mentioned platelet count of 47, 000. Her D-dimer was greater than 1050. She had borderline pressures at best, which drifted down in to the upper 60 range. Fluids were wide open and she was started on Levophed. At that point in time , I called for the lodging facilities manager to come in emergently as this appeared like a septic shock picture. She was cultured as soon as possible and she was started on antibiotic therapy with piperacillin and vancomycin intravenously. She was sent for a CT scan of the abdomen and this revealed a right hydronephrosis with hydroureter noted. There was small calculi in the distal right ureter likely representing ureteral obstruction with perinephric infiltration of the fat noted. There was also apparently reported to be chronic int erstitial disease as well. Her chest x-ray report showed no acute pulmonary or cardiac disease. With pressor therapy and fluid therapy, her blood pressure finally started to stabilize in addition to the antibiotic therapy, so it stabilized at greater than 100. Dr. Lawson graciously came in to see the patient and he will be taking over management. Of note, I did a bedside echo and there was elliot bal left ventricular hypokinesis that I presume at this point in time is secondary to gram-negative septicemia with endotoxins with her ability to stabilize her pressure. Hopefully, at this point in time we do not need to intervene with any other support systems like intraaortic balloon pump and I discussed that with Dr. Lawson who did not feel that would be indicated at this point. PAST MEDICAL HISTORY: The patient's past medical history as best as I can get it is that at one i nt in time she had diabetes and was on metformin. She has not seen her doctors since some 8 months. She had moved to [place] and not established care. She had seen a physician in the [facility] in [place], [place] (telephone number [phone]). She denied any known history of cardiac problems. She denied any known history of hypertension, hyperlipidemia and smoking history of half pack a day for some 50 years (probably more). ALLERGIES: She denies any significant allergies. REVIEW OF SYSTEMS: She denies any significant rashes or sores. She does state that over these past several days she believes she had shaking chills and fevers as well, but could not document any of that. She denies any stroke or TIA history. She denies any history of blood disorders that she is a campbell of. She denies any history of underlying lung disease. She denies any cardiac history as ment ioned. She denies any history of GI pathology. PHYSICAL EXAM: Physical examination when I initially saw her in the emergency room revealed vital s igns; blood pressure of 77/61 with a pulse of 101, respirations were 27. Neck was supple. It was i mpossible to appreciate JVP with her in the lying position. Conjunctivae are pink. Sclerae clear. Lungs revealed no accessory muscle usage. There almost sounded like a rub-like sound anteriorly ac ross the right lung field. I asked Dr. Mueller to examine her with respect to that and he felt it was more secondary to a rhonchi type sound. Abdomen was obese. There was tenderness in the right lower to the right upper quadrant noted. There was no specific guarding. Extremities were without clubbi ng or cyanosis. Femoral pulses were present bilaterally but weak in nature due to the hypotension. I did not appreciate definitive bruits. Neuro: The patient was completely alert and oriented. Mu sculoskeletal: She moved all extremities appropriate. Psychological: The patient with normal affec t. DIAGNOSTIC STUDIES/LAB DATA: Laboratory results reveal white count 19,100, hemoglobin and hematocri t of 14.4 and 43 with a platelet count of 47,000, neutrophils were 53%, bands 27%, lymphs 9%, metamy elocytes 5, myelocytes 6 in addition to polychromasia and Elwood cells. INR was 1.6, fibrinogen was 4 29,000. D- dimer was greater than 1050. Sodium 138, potassium 3.3, chloride 105, bicarb 17, BUN an d creatinine of 35 and 2.59, lactic acid was 9.1, SGOT 47, SGPT 25, alk phos 186, total CPK 97, MB 1 0.4, myoglobin 191, troponin 8.1. B natriuretic peptide 933. Total protein 7.6, albumin 2.7. LDL was 12. OVERALL ASSESSMENT: Ms. Forrester presents now with what sounds like after careful evaluation septic sudhakar ck, perhaps gram-negative sepsis from obstructive right ureter. At this point, I discussed the case at length with Dr. Lawson and he adamantly stated he did not think I should go to the cardiovascular laboratory at all to look at her coronary arteries and at this point in time, I would agree with berhane puente. I also brought up the issue of perhaps an intraaortic balloon pump and he did not feel that will be indicated at this point in time. He will take over managing the patient acutely and be admittin g the patient or making a decision on transferring the patient pending with what other subspecialist s and specialists are available to intervene should we need to do anything with her kidney function. TIME SPENT: The time spent on this case was 2-1/2 hours of critical care time with direct contact w ith the patient for three quarters of that time. Discussion also with Dr. Mueller in addition to Dr. Lawson and also with the hospitalist who is gracious enough to assist in getting different orders put in place. [id number]/[facility] #: [id number]
--- NOTE | 2016-07-06 08:56 | PN ---
Progress Note - Progress Note Note: Pt blood cultures grew Klebsiella Pneumoniae. She was transferred to [facility] for septic shock so no further action needed at this time.
== END 2016-07-04 22:26 | disposition short-term general hospital (02) ==
LOC: ED 18:33
DX: A41.9 Sepsis, unspecified organism (principal); I21.4 Non-ST elevation (NSTEMI) myocardial infarction; N13.9 Obstructive and reflux uropathy, unspecified; N17.9 Acute kidney failure, unspecified; R05 Cough; R51 Headache; R11.10 Vomiting, unspecified; R53.1 Weakness; F17.210 Nicotine dependence, cigarettes, uncomplicated
CPT/HCPCS: 36415; 71010; 71250; 74176; 80053; 81003; 81015; 82550; 82553; 83605; 83721; 83874; 83880; 84484; 85025; 85049; 85060; 85362; 85384; 85610; 85730; 86850; 86900; 86901; 87040; 87077; 87086; 87186; 87205; 93005; 99285; J1644; J2543; J3370

== ENCOUNTER → 2017-12-12 09:35 | Emergency (ER) | payer MEDICARE ==
[~2017-12-12 09:35] MED LIST: Ibuprofen TAB* 600 MG PO ONE; traMADol TAB* 50 MG PO ONE
--- NOTE | 2017-12-12 10:35 | ED ---
Skin Complaint - HPI Summary HPI Summary: The pt is a 57 y/o female accompanied by her significant other c/o erythematous rash on the R lower back since 5 days ago. She notes R lower back pain that radiates to the R pelvis but denies fever and chills. She denies any recent trauma that could have caused the back pain. The lower back pain is aggravated by movement. She took Ibuprofen and soaked in a hot tub to no relief. - History of Current Complaint Chief Complaint: EDBackInjuryPain Time Seen by Provider: 12/12/17 10:27 Stated Complaint: BACK PAIN/RASH Hx Obtained From: Patient, Family/Mailing Specialist Onset/Duration: Started Days Ago - 5 days, Still Present, Worse Since - 4:00 am today Timing: Constant Onset Severity: Severe Current Severity: Severe Pain Intensity: 8 Pain Scale Used: 0-10 Numeric Skin Location: Discrete - R lower back Character: Redness Aggravating Symptom(s): Other: - Movement Alleviating Symptom(s): Nothing Associated Signs & Symptoms: Rash - Allergy/Home Medications Allergies/Adverse Reactions: Allergies Allergy/AdvReac Type Severity Reaction Status Date / Time No Known Allergies Allergy Verified 12/12/17 09:54 PMH/Surg Hx/FS Hx/Imm Hx Previously Healthy: No Endocrine/Hematology History: Reports: Hx Diabetes Cardiovascular History: Reports: Hx Myocardial Infarction Denies: Hx Angina, Hx Coronary Artery Disease, Hx Hypercholesterolemia - no dx but on meds, Hx Hypertension - no dx but on meds, Hx Valvular Heart Disease Respiratory History: Denies: Hx Asthma, Hx Chronic Obstructive Pulmonary Disease (COPD) - Cancer History Cancer Type, Location and Year: None reported - Surgical History Surgery Procedure, Year, and Place: None reported Infectious Disease History: Yes - Chickenpox Infectious Disease History: Denies: Traveled Outside the [place] in Last 30 Days - Family History Known Family History: Positive: Cardiac Disease - Social History Occupation: Employed Full-time Lives: With Family Alcohol Use: Rare Substance Use Type: Reports: None Smoking Status (MU): Former Smoker Review of Systems Constitutional: Negative - Trauma and injuries Negative: Fever, Chills Musculoskeletal: Other - Positive: R lower back pain radiating to the R pelvis Positive: Rash - R lower back All Other Systems Reviewed And Are Negative: Yes Physical Exam - Summary Physical Exam Summary: General: well-appearing, no pain distress Skin: Erythematous rash with vesicles on the R lower backspecifically the dermatomal zone L2-L5 .Warm. Dry Head: normal Eyes: EOMI, KE ENT: normal Neck: supple, nontender Respiratory: CTA, breath sounds present Cardiovascular: RRR Abdomen: soft, nontender Bowel: present Musculoskeletal: normal, strength/ROM intact Neurological: sensory/motor intact, A&O x3 Psychological: affect/mood appropriate Triage Information Reviewed: Yes Vital Signs On Initial Exam: Initial Vitals Temp Pulse Resp BP Pulse Ox 98.4 F 66 14 161/93 97 12/12/17 09:50 12/12/17 09:50 12/12/17 09:50 12/12/17 09:50 12/12/17 09:50 Vital Signs Reviewed: Yes Diagnostics - Vital Signs Vital Signs Temp Pulse Resp BP Pulse Ox 12/12/17 09:50 98.4 F 66 14 161/93 97 - Laboratory Lab Statement: Any lab studies that have been ordered have been reviewed, and results considered in the medical decision making process. Course/Dx - Course Course Of Treatment: Medications reviewed. Allergies noted. - Diagnoses Provider Diagnoses: Shingles Discharge - Sign-Out/Discharge Documenting (check all that apply): Patient Departure - DC - Discharge Plan Condition: Stable Disposition: HOME Prescriptions: Ibuprofen TAB* [Motrin TAB* 600 MG] 600 mg PO Q6H PRN #30 tab PRN Reason: Pain traMADol TAB* [Ultram*] 50 mg PO Q4HR #30 tab MDD 6 Valacyclovir HCl [Valacyclovir] 1,000 mg PO TID #21 tablet Patient Education Materials: Shingles (ED) Forms: *Work Release Referrals: Susan Wood MD [Primary Care Provider] - Additional Instructions: FOLLOW UP WITH YOUR DOCTOR. GET RECHECKED FOR ANY WORSENING OF YOUR CONDITION OR QUESTIONS OR CONCERNS. - Billing Disposition and Condition Condition: STABLE Disposition: Home - Attestation Statements Document Initiated by Scribe: Yes Documenting Scribe: Frieda Man Provider For Whom Scribe is Documenting (Include Credential): Dr. Salvador Regan MD Scribe Attestation: Frieda Mcneil , scribed for Dr. Salvador Regan MD on 12/12/17 at 1212. Scribe Documentation Reviewed: Yes Provider Attestation: The documentation as recorded by the scribe, Frieda Man accurately reflects the service I personally performed and the decisions made by me, Dr. Salvador Mcguire.
[2017-12-12 11:22] VITALS: BP 158/82
== END | disposition home or self-care (01) ==
LOC: ED 09:35
DX: B02.9 Zoster without complications (principal); Z87.891 Personal history of nicotine dependence
CPT/HCPCS: 99282; A9270-GY

== ENCOUNTER 2021-08-19 09:17 | Inpatient (IN) ==
[2021-08-19] MEDS ORDERED: Lactated Ringers 1000 ml BAG 1,000 ML IV ONE ×2 (10:31→12:14)
[2021-08-19] MEDS ORDERED: cefTRIAXone 1 gm/50 mL D5W 1 GM/50 ML BAG IV ONE (10:44)
[2021-08-19] MEDS ORDERED: Azithromycin 500 mg/250 ml NS 500 MG/250 ML BAG IVPB ONE (10:44)
[2021-08-19 11:10] LABS: ABS Lymphocytes 0.8 10^3/ul (1.0-4.8); ABS Monocytes 0.4 10^3/ul (0-0.8); ABS Neutrophils 2.5 10^3/ul (1.5-7.7); Eosinophil % 0.4 %; Hematocrit 39 % (35-47); Lymphocyte % 20.5 %; Mean Corpuscular HGB Conc 34 g/dL (31-36); Mean Corpuscular Hemoglobin 30 pg (27-31); Mean Corpuscular Volume 88 fL (80-97); Mean Platelet Volume 8.2 fL (7.4-10.4); Nucleated Red Blood Cells % 0.1; Platelet Count 166 10^3/uL (150-450); Red Blood Count 4.38 10^6 /uL (3.70-4.87); Red Cell Distribution Width 14 % (10-15); White Blood Count 3.7 10^3/uL (3.5-10.8)
[2021-08-19 12:15] LABS: Albumin 3.1 g/dL (3.2-5.2); Albumin/Globulin Ratio 0.7 (1-3); C Reactive Protein 52.19 mg/L (<8.01); Calcium 8.2 mg/dL (8.6-10.3); Globulin 4.7 g/dL (2-4); Magnesium 1.8 mg/dL (1.9-2.7); Potassium 3.3 mmol/L (3.5-5.0); Total Bilirubin 0.5 mg/dL (0.2-1.0); Total Protein 7.8 g/dL (6.4-8.9); eGFR CKD-EPI 93.9 (>60)
[2021-08-19 12:17] LABS: PCO2 Arterial 29 mmHg (35-45); PO2 Arterial 77 mmHg (80-100)
[2021-08-19] MEDS ORDERED: Potassium Chlor 20 meq TAB.ER PO ONE (12:26)
[2021-08-19] MEDS ORDERED: Magnesium Sulfate 2 gm BAG 2 GM/50 ML BAG IVPB ONE (12:26)
[2021-08-19] MEDS ORDERED: Albuterol/Ipratropium NEB.SOL (2.5/0.5 MG) 3 ML NEB.SOLN INH PRN (13:45)
[2021-08-19] MEDS: Enoxaparin 40 MG/0.4 ML SYR SUBCUT SCH (16:20)
[2021-08-20 06:00] LABS: ABS Lymphocytes 0.7 10^3/ul (1.0-4.8); ABS Monocytes 0.2 10^3/ul (0-0.8); Hematocrit 33 % (35-47); Hemoglobin 11.3 g/dL (12.0-16.0); Lymphocyte % 35.1 %; Mean Corpuscular HGB Conc 34 g/dL (31-36); Mean Corpuscular Hemoglobin 30 pg (27-31); Mean Corpuscular Volume 88 fL (80-97); Mean Platelet Volume 8.2 fL (7.4-10.4); Nucleated Red Blood Cells % 0.1; Platelet Count 138 10^3/uL (150-450); Red Blood Count 3.75 10^6 /uL (3.70-4.87); Red Cell Distribution Width 13 % (10-15); White Blood Count 1.9 10^3/uL (3.5-10.8)
[2021-08-20 06:32] LABS: Calcium 7.8 mg/dL (8.6-10.3); Potassium 4.1 mmol/L (3.5-5.0); eGFR CKD-EPI 104.8 (>60)
[2021-08-20] MEDS: Nicotine PATCH 14 MG/24 HR PATCH TRANSDERM SCH (07:46)
[2021-08-20] MEDS: cefTRIAXone 1 gm/50 mL D5W 1 GM/50 ML BAG IV SCH (11:21)
[2021-08-20] MEDS ORDERED: Albuterol HFA INHALER 8 gm MDI INH PRN (12:26)
[2021-08-20] MEDS: Enoxaparin 40 MG/0.4 ML SYR SUBCUT SCH (13:12)
[2021-08-20] MEDS: Azithromycin 500 mg/250 ml NS 500 MG/250 ML BAG IVPB SCH (13:12)
[2021-08-21 05:53] LABS: ABS Monocytes 0.3 10^3/ul (0-0.8); ABS Neutrophils 3.2 10^3/ul (1.5-7.7); Eosinophil % 0.3 %; Hematocrit 34 % (35-47); Hemoglobin 11.7 g/dL (12.0-16.0); Lymphocyte % 21.8 %; Mean Corpuscular HGB Conc 34 g/dL (31-36); Mean Corpuscular Hemoglobin 30 pg (27-31); Mean Corpuscular Volume 88 fL (80-97); Mean Platelet Volume 8.6 fL (7.4-10.4); Platelet Count 164 10^3/uL (150-450); Red Blood Count 3.83 10^6 /uL (3.70-4.87); Red Cell Distribution Width 14 % (10-15); White Blood Count 4.6 10^3/uL (3.5-10.8)
[2021-08-21 06:19] LABS: Calcium 8.2 mg/dL (8.6-10.3); Potassium 3.4 mmol/L (3.5-5.0)
[2021-08-21 06:24] LABS: eGFR CKD-EPI 100.8 (>60)
[2021-08-21] MEDS ORDERED: Potassium Chlor 10 meq TAB PO ONE (07:19)
[2021-08-21 07:45] LABS: Magnesium 1.8 mg/dL (1.9-2.7)
[2021-08-21] MEDS: Nicotine PATCH 14 MG/24 HR PATCH TRANSDERM SCH (08:00)
[2021-08-21] MEDS ORDERED: Magnesium Sulfate 2 gm BAG 2 GM/50 ML BAG IVPB ONE (08:24)
[2021-08-21] MEDS: cefTRIAXone 1 gm/50 mL D5W 1 GM/50 ML BAG IV SCH (10:01)
[2021-08-21] MEDS: Azithromycin 500 mg/250 ml NS 500 MG/250 ML BAG IVPB SCH (11:31)
[2021-08-21 14:25] LABS: Creatine Kinase 11 U/L (10-223); Rheumatoid Factor < 10 IU/mL (<15)
[2021-08-21] MEDS: Enoxaparin 40 MG/0.4 ML SYR SUBCUT SCH (14:35)
[2021-08-22 06:28] LABS: Hematocrit 36 % (35-47); Hemoglobin 12.3 g/dL (12.0-16.0); Mean Corpuscular HGB Conc 35 g/dL (31-36); Mean Corpuscular Hemoglobin 30 pg (27-31); Mean Corpuscular Volume 88 fL (80-97); Mean Platelet Volume 8.3 fL (7.4-10.4); Platelet Count 191 10^3/uL (150-450); Red Blood Count 4.03 10^6 /uL (3.70-4.87); Red Cell Distribution Width 13 % (10-15); White Blood Count 4.6 10^3/uL (3.5-10.8)
[2021-08-22 06:58] LABS: Calcium 8.4 mg/dL (8.6-10.3); Magnesium 1.9 mg/dL (1.9-2.7); Potassium 3.7 mmol/L (3.5-5.0); eGFR CKD-EPI 100.8 (>60)
[2021-08-22] MEDS ORDERED: Magnesium Sulfate 2 gm BAG 2 GM/50 ML BAG IVPB ONE (07:39)
[2021-08-22] MEDS: Nicotine PATCH 14 MG/24 HR PATCH TRANSDERM SCH (07:59)
[2021-08-22] MEDS ORDERED: Potassium Chlor 20 meq TAB.ER PO ONE (08:00)
[2021-08-22] MEDS: cefTRIAXone 1 gm/50 mL D5W 1 GM/50 ML BAG IV SCH (10:08)
[2021-08-22] MEDS: Mometasone/Formoter 100/5 MDI INH SCH ×3 (12:18→19:31)
[2021-08-22 14:11] LABS: Aldolase 4.6 U/L (<7.7)
[2021-08-22] MEDS: Enoxaparin 40 MG/0.4 ML SYR SUBCUT SCH (14:57)
[2021-08-22 15:26] LABS: SS-A/Ro Antibody <0.2 U; SS-B/La Antibody <0.2 U; Scleroderma Ab <0.2 U
[2021-08-22 19:48] LABS: Cyclic Citrullinated Pept IgG <15.6 U
[2021-08-23] MEDS: Mometasone/Formoter 100/5 MDI INH SCH ×2 (07:39→19:44)
[2021-08-23] MEDS: Nicotine PATCH 14 MG/24 HR PATCH TRANSDERM SCH (08:35)
[2021-08-23] MEDS: cefTRIAXone 1 gm/50 mL D5W 1 GM/50 ML BAG IV SCH (09:55)
[2021-08-23 12:20] LABS: Hematocrit 36 % (35-47); Hemoglobin 12.3 g/dL (12.0-16.0); Mean Corpuscular HGB Conc 34 g/dL (31-36); Mean Corpuscular Hemoglobin 30 pg (27-31); Mean Corpuscular Volume 88 fL (80-97); Mean Platelet Volume 8.3 fL (7.4-10.4); Platelet Count 193 10^3/uL (150-450); Red Blood Count 4.09 10^6 /uL (3.70-4.87); Red Cell Distribution Width 13 % (10-15); White Blood Count 5.9 10^3/uL (3.5-10.8)
[2021-08-23 13:04] LABS: Calcium 8.3 mg/dL (8.6-10.3); Potassium 4.3 mmol/L (3.5-5.0); eGFR CKD-EPI 98.1 (>60)
[2021-08-23] MEDS: Enoxaparin 40 MG/0.4 ML SYR SUBCUT SCH (13:20)
[2021-08-23] MEDS: methylPREDNISolone SOD SUCC 40 mg/ml 1 ml VIAL IV SCH ×2 (13:20→20:32)
[2021-08-23] MEDS ORDERED: Zosyn per Pharmacy NOTE FOLLOW UP SCH (17:00)
[2021-08-23] MEDS ORDERED: Piperacillin/Tazobac ADVAN 3.375 GM in NS 0.9% 100 ml BAG 100 ML IV ONE (17:00)
[2021-08-23] MEDS ORDERED: SPIRIVA Respimat (tiotropium) 2.5 mcg/inh Inhaler INH SCH (18:00)
[2021-08-23] MEDS: Mometasone/Formoter 200/5 MDI INH SCH (19:46)
[2021-08-23] MEDS: ZOSYN 3.375 GM Q8H per EXTENDED INFUSION IV SCH (22:20)
[2021-08-24] MEDS: ZOSYN 3.375 GM Q8H per EXTENDED INFUSION IV SCH ×3 (06:32→21:35)
[2021-08-24] MEDS: methylPREDNISolone SOD SUCC 40 mg/ml 1 ml VIAL IV SCH ×3 (06:33→21:37)
[2021-08-24 06:50] LABS: Hematocrit 35 % (35-47); Hemoglobin 12.1 g/dL (12.0-16.0); Mean Corpuscular HGB Conc 35 g/dL (31-36); Mean Corpuscular Hemoglobin 31 pg (27-31); Mean Corpuscular Volume 88 fL (80-97); Mean Platelet Volume 8.5 fL (7.4-10.4); Platelet Count 197 10^3/uL (150-450); Red Blood Count 3.95 10^6 /uL (3.70-4.87); Red Cell Distribution Width 14 % (10-15); White Blood Count 3.5 10^3/uL (3.5-10.8)
[2021-08-24 07:11] LABS: CRP High Sensitivity 32.54 mg/L (<2.00); Calcium 8.6 mg/dL (8.6-10.3); HDL Cholesterol 27.6 mg/dL; Potassium 4.5 mmol/L (3.5-5.0); eGFR CKD-EPI 100.4 (>60)
[2021-08-24] MEDS ORDERED: Dextrose 50% Syringe 50 ml 25 GM/50 ML SYRINGE IV PUSH PRN (07:31)
[2021-08-24] MEDS: SPIRIVA Respimat (tiotropium) 2.5 mcg/inh Inhaler INH SCH (07:41)
[2021-08-24] MEDS: Mometasone/Formoter 200/5 MDI INH SCH ×2 (07:41→19:51)
[2021-08-24] MEDS: Nicotine PATCH 14 MG/24 HR PATCH TRANSDERM SCH (08:06)
[2021-08-24] MEDS ORDERED: SPIRIVA Respimat (tiotropium) 2.5 mcg/inh Inhaler INH SCH (09:00)
[2021-08-24] MEDS: Enoxaparin 40 MG/0.4 ML SYR SUBCUT SCH (13:06)
[2021-08-25] MEDS: ZOSYN 3.375 GM Q8H per EXTENDED INFUSION IV SCH ×2 (05:10→14:24)
[2021-08-25 06:54] LABS: Hematocrit 35 % (35-47); Hemoglobin 12.2 g/dL (12.0-16.0); Mean Corpuscular HGB Conc 35 g/dL (31-36); Mean Corpuscular Hemoglobin 31 pg (27-31); Mean Corpuscular Volume 89 fL (80-97); Mean Platelet Volume 9.1 fL (7.4-10.4); Platelet Count 226 10^3/uL (150-450); Red Blood Count 3.97 10^6 /uL (3.70-4.87); Red Cell Distribution Width 13 % (10-15); White Blood Count 6.7 10^3/uL (3.5-10.8)
[2021-08-25 07:13] LABS: Calcium 8.9 mg/dL (8.6-10.3); Potassium 4.5 mmol/L (3.5-5.0); eGFR CKD-EPI 85.3 (>60)
[2021-08-25] MEDS: Nicotine PATCH 14 MG/24 HR PATCH TRANSDERM SCH (07:18)
[2021-08-25] MEDS: SPIRIVA Respimat (tiotropium) 2.5 mcg/inh Inhaler INH SCH (08:10)
[2021-08-25] MEDS: Mometasone/Formoter 200/5 MDI INH SCH ×2 (08:20→19:58)
[2021-08-25] MEDS: methylPREDNISolone SOD SUCC 40 mg/ml 1 ml VIAL IV SCH (09:20)
[2021-08-25] MEDS: Enoxaparin 40 MG/0.4 ML SYR SUBCUT SCH (14:26)
[2021-08-25 17:13] VITALS: BP 146/62
[2021-08-26 10:15] LABS: Adenovirus Undetected (Undetected); Bordetella parapertussis Undetected (Undetected); Bordetella pertussis Undetected (Undetected); Chlamydophila pneumoniae Undetected (Undetected); Coronavirus 229E Undetected (Undetected); Coronavirus HKU1 Undetected (Undetected); Coronavirus NL63 Undetected (Undetected); Coronavirus OC43 Undetected (Undetected); Human Metapneumovirus Undetected (Undetected); Human Rhinovirus/Enterovirus Undetected (Undetected); Influenza A Undetected (Undetected); Influenza B Undetected (Undetected); Mycoplasmoides pneumoniae Undetected (Undetected); Parainfluenza Virus 1 Undetected (Undetected); Parainfluenza Virus 2 Undetected (Undetected); Parainfluenza Virus 3 Undetected (Undetected); Parainfluenza Virus 4 Undetected (Undetected); Respiratory Syncytial Virus Undetected (Undetected); Specimen Source NASOPHARYNGEAL SWAB
== END 2021-08-25 18:50 | disposition home or self-care (01) | DRG 194 ==
LOC: ED 09:17 → SUATTDRO 13:39 → EDHOLD 13:39 → MEDTELE 15:24
PROVIDERS: ADMIT Internal Medicine; ATTEND Internal Medicine

== ENCOUNTER 2022-04-22 13:19 | Inpatient (IN) ==
[2022-04-22] MEDS ORDERED: Lactated Ringers 1000 ml BAG 1,000 ML IV ONE (13:40)
[2022-04-22] MEDS ORDERED: Azithromycin 500 mg/250 ml NS 500 MG/250 ML BAG IVPB ONE (13:40)
[2022-04-22] MEDS ORDERED: cefTRIAXone 1 gm/50 mL D5W 1 GM/50 ML BAG IV ONE (13:40)
[2022-04-22 14:41] LABS: ABS Eosinophils 0.1 10^3/ul (0-0.6); ABS Lymphocytes 0.5 10^3/ul (1.0-4.8); ABS Monocytes 0.6 10^3/ul (0-0.8); ABS Neutrophils 3.6 10^3/ul (1.5-7.7); Eosinophil % 1.9 %; Hematocrit 35 % (35-47); Mean Corpuscular HGB Conc 34 g/dL (31-36); Mean Corpuscular Hemoglobin 32 pg (27-31); Mean Corpuscular Volume 95 fL (80-97); Mean Platelet Volume 8.8 fL (7.4-10.4); Platelet Count 107 10^3/uL (150-450); Red Cell Distribution Width 14 % (10-15); White Blood Count 4.8 10^3/uL (3.5-10.8)
[2022-04-22] MEDS ORDERED: methylPREDNISolone SOD SUCC 125 mg 2 ML VIAL IV ONE (14:51)
[2022-04-22] MEDS ORDERED: Albuterol/Ipratropium NEB.SOL (2.5/0.5 MG) 3 ML NEB.SOLN INH ONE (14:51)
[2022-04-22 14:54] LABS: Activated Partial Thrombo Time 31.2 seconds (26.0-38.0); INR 1.16 (0.88-1.18)
[2022-04-22 16:13] LABS: Albumin 3.3 g/dL (3.2-5.2); Albumin/Globulin Ratio 0.9 (1-3); C Reactive Protein 13.77 mg/L (<8.01); Creatinine, Serum 0.69 mg/dL (0.51-0.95); Globulin 3.5 g/dL (2-4); Potassium 3.9 mmol/L (3.5-5.0); Total Bilirubin 0.4 mg/dL (0.2-1.0); Total Protein 6.8 g/dL (6.4-8.9); eGFR CKD-EPI 97.5 (>60)
[2022-04-22 16:45] LABS: High Sensitivity Troponin 1 Hr 14 pg/mL (<15)
[2022-04-22] MEDS ORDERED: Polyethylene Glycol 3350 17 GM PACKET PO PRN (18:12)
[2022-04-22] MEDS ORDERED: Albuterol/Ipratropium NEB.SOL (2.5/0.5 MG) 3 ML NEB.SOLN INH PRN (18:15)
[2022-04-22] MEDS ORDERED: Dextrose 50% Syringe 50 ml 25 GM/50 ML SYRINGE IV PUSH PRN (18:16)
[2022-04-22 18:22] LABS: Urine Appearance Clear; Urine Bilirubin Negative (Negative); Urine Blood Negative (Negative); Urine Color Yellow; Urine Glucose Negative (Negative); Urine Ketones Negative (Negative); Urine Nitrite Negative (Negative); Urine Protein 3+(>=500 mg/dL) (Negative); Urine Specific Gravity 1.018 (1.002-1.030); Urine Urobilinogen Positive (Negative)
[2022-04-22 18:24] LABS: Urine Bacteria Absent (Absent); Urine Red Blood Cell Trace(0-2/hpf) (Absent); Urine Squamous Epithelial Cell Present (Absent); Urine White Blood Cell Trace(0-5/hpf) (Absent)
[2022-04-22] MEDS: Enoxaparin 40 MG/0.4 ML SYR SUBCUT SCH (20:57)
[2022-04-23 06:25] LABS: Hematocrit 32 % (35-47); Hemoglobin 11.2 g/dL (12.0-16.0); Mean Corpuscular HGB Conc 35 g/dL (31-36); Mean Corpuscular Hemoglobin 33 pg (27-31); Mean Corpuscular Volume 95 fL (80-97); Platelet Count 100 10^3/uL (150-450); Red Blood Count 3.39 10^6 /uL (3.70-4.87); Red Cell Distribution Width 14 % (10-15); White Blood Count 2.4 10^3/uL (3.5-10.8)
[2022-04-23 06:43] LABS: Nucleated Red Blood Cells % 0.1
[2022-04-23 06:56] LABS: ABS Lymphocytes 0.6 10^3/ul (1.0-4.8); ABS Monocytes 0.4 10^3/ul (0-0.8); ABS Neutrophils 1.5 10^3/ul (1.5-7.7); Eosinophil % 0.1 %; Lymphocyte % 23.7 %
[2022-04-23 07:05] LABS: Calcium 7.9 mg/dL (8.6-10.3); Creatinine, Serum 0.7 mg/dL (0.51-0.95); Magnesium 1.8 mg/dL (1.9-2.7); Potassium 3.9 mmol/L (3.5-5.0); eGFR CKD-EPI 97.1 (>60)
[2022-04-23] MEDS ORDERED: Magnesium Sulfate 2 gm BAG 2 GM/50 ML BAG IVPB ONE (07:42)
[2022-04-23] MEDS: Mometasone/Formoter 200/5 MDI INH SCH ×2 (07:52→19:23)
[2022-04-23 08:26] LABS: C Reactive Protein 15.05 mg/L (<8.01)
[2022-04-23] MEDS: Azithromycin 500 mg/250 ml NS 500 MG/250 ML BAG IVPB SCH (16:21)
[2022-04-23] MEDS: SPIRIVA Respimat (tiotropium) 2.5 mcg/inh Inhaler INH SCH (16:30)
[2022-04-23] MEDS: Enoxaparin 40 MG/0.4 ML SYR SUBCUT SCH (23:27)
[2022-04-24 06:47] LABS: ABS Lymphocytes 0.7 10^3/ul (1.0-4.8); ABS Monocytes 0.7 10^3/ul (0-0.8); ABS Neutrophils 4.2 10^3/ul (1.5-7.7); Eosinophil % 0.3 %; Hematocrit 32 % (35-47); Lymphocyte % 12.6 %; Mean Corpuscular HGB Conc 35 g/dL (31-36); Mean Corpuscular Hemoglobin 33 pg (27-31); Mean Corpuscular Volume 94 fL (80-97); Mean Platelet Volume 8.9 fL (7.4-10.4); Nucleated Red Blood Cells % 0.1; Platelet Count 108 10^3/uL (150-450); Red Blood Count 3.34 10^6 /uL (3.70-4.87); Red Cell Distribution Width 14 % (10-15); White Blood Count 5.7 10^3/uL (3.5-10.8)
[2022-04-24 07:31] LABS: Calcium 7.9 mg/dL (8.6-10.3); Creatinine, Serum 0.76 mg/dL (0.51-0.95); Magnesium 1.9 mg/dL (1.9-2.7); Potassium 3.8 mmol/L (3.5-5.0)
[2022-04-24] MEDS: Mometasone/Formoter 200/5 MDI INH SCH ×2 (08:04→19:42)
[2022-04-24] MEDS: SPIRIVA Respimat (tiotropium) 2.5 mcg/inh Inhaler INH SCH (08:05)
[2022-04-24] MEDS: Azithromycin 500 mg/250 ml NS 500 MG/250 ML BAG IVPB SCH (16:54)
[2022-04-24] MEDS: Enoxaparin 40 MG/0.4 ML SYR SUBCUT SCH (22:01)
[2022-04-25 06:40] LABS: ABS Lymphocytes 0.6 10^3/ul (1.0-4.8); ABS Monocytes 0.5 10^3/ul (0-0.8); ABS Neutrophils 2.6 10^3/ul (1.5-7.7); Eosinophil % 0.2 %; Hematocrit 32 % (35-47); Hemoglobin 11.3 g/dL (12.0-16.0); Lymphocyte % 15.6 %; Mean Corpuscular HGB Conc 35 g/dL (31-36); Mean Corpuscular Hemoglobin 33 pg (27-31); Mean Corpuscular Volume 93 fL (80-97); Mean Platelet Volume 9.1 fL (7.4-10.4); Nucleated Red Blood Cells % 0.1; Platelet Count 117 10^3/uL (150-450); Red Blood Count 3.44 10^6 /uL (3.70-4.87); Red Cell Distribution Width 14 % (10-15); White Blood Count 3.7 10^3/uL (3.5-10.8)
[2022-04-25 06:57] LABS: Calcium 8.2 mg/dL (8.6-10.3); Creatinine, Serum 0.63 mg/dL (0.51-0.95); Potassium 3.7 mmol/L (3.5-5.0); eGFR CKD-EPI 99.6 (>60)
[2022-04-25] MEDS: SPIRIVA Respimat (tiotropium) 2.5 mcg/inh Inhaler INH SCH (08:14)
[2022-04-25] MEDS: Mometasone/Formoter 200/5 MDI INH SCH (08:51)
[2022-04-25 10:11] VITALS: BP 136/73
== END 2022-04-25 13:37 | disposition home or self-care (01) | DRG 189 ==
LOC: EDHOLD 13:19 → ED 13:19 → SUATTDRO 18:12 → EDHOLD 22:44 → MED 23:22
PROVIDERS: ADMIT Internal Medicine; ATTEND Internal Medicine